=== PATIENT | female | born 1955 | race Caucasian/White ===

== ENCOUNTER → 2021-02-05 10:44 | Outpatient (BNVA) | payer MEDICARE, SELFPAY | PROVIDERS: PCP Pediatrics; Referring Provider Family Medicine; Visit Provider Internal Medicine Rheumatology | DX: R76.8 Other specified abnormal immunological findings in serum (principal); M19.90 Unspecified osteoarthritis, unspecified site; J44.9 Chronic obstructive pulmonary disease, unspecified; Z11.52 Encounter for screening for COVID-19; Z79.899 Other long term (current) drug therapy; G51.0 Bell's palsy; Z85.3 Personal history of malignant neoplasm of breast; Z90.11 Acquired absence of right breast and nipple; F17.200 Nicotine dependence, unspecified, uncomplicated | CPT/HCPCS: 36415; 73562; 80076; 81001; 82085; 82306; 82550; 82565; 82570; 84156; 85025; 86160; 86162; 86235; 86255; 86376; 99204 ==

== ENCOUNTER 2021-02-05 13:04 | Outpatient (CLI) | payer MEDICARE, SELFPAY ==
--- NOTE | 2021-02-05 13:16 | XR_ITS ---
WS: [id number] XR knee RT 3V* [id number] REASON FOR EXAM: Z79.899 - Other [employer] (current) drug therapy FINDINGS: The medial and lateral knee joint spaces are intact and relatively well-maintained. No osteophytic sp urring or subchondral bony abnormality identified. There is mild narrowing of the patellofemoral joint space with small marginal patellar osteophytes. XR/XR knee RT 3V* [id number] IMPRESSION: Mild changes of osteoarthritis in the patellofemoral joint.
[2021-02-05 14:06] LABS: Basophils # 0.1 10^3/uL (0.0-0.1); Basophils % 0.7 %; Eosinophils # 0.1 10^3/uL (0.0-0.8); Eosinophils % 0.7 %; Hematocrit 44.6 % (37.0-47.0); Hemoglobin 14.8 g/dL (11.5-15.3); Lymphocytes # 1.7 10^3/uL (0.8-4.8); Lymphocytes % 16.1 %; Mean Corpuscular HGB Conc 33.2 g/dL (30.0-36.0); Mean Corpuscular Hemoglobin 29.3 pg (28.0-34.0); Mean Corpuscular Volume 88.3 fL (81-99); Mean Platelet Volume 10.4 fL (7.4-10.4); Monocytes # 0.9 10^3/uL (0.2-0.9); Monocytes % 8.3 %; Neutrophils # 7.65 10^3/uL (1.8-7.7); Neutrophils % 73.1 %; Nucleated Red Blood Cells % 0 %; Platelet Count 267 10^3/cmm (130-400); Red Blood Count 5.05 10^6/uL (4.1-5.3); Red Cell Distribution Width 13.1 % (12.1-15.1); White Blood Count 10.5 10^3/uL (4.0-10.0)
[2021-02-05 14:27] LABS: Glucose Urine UA Norm (Normal); Ketones Urine 1+ (Negative); Protein Urine Neg (Negative); Urine Appearance Clear (CLEAR); Urine Color Yellow (Yellow); pH Urine 5 (5-7)
[2021-02-05 14:28] LABS: Bilirubin Urine 1+ (Negative); Blood Urine Neg (Negative); Nitrate Urine Negative (Negative); Urobilinogen Urine 4 mg/dL (Negative); WBC Urine 0-4 /hpf (0-5)
[2021-02-05 14:29] LABS: Add Urine Culture? No
[2021-02-05 14:44] LABS: Leukocyte Esterase Urine Trace (Negative)
[2021-02-05 14:46] LABS: Urine Creatinine 397 mg/dL (28-217); Urine Protein Random 35 mg/dL
[2021-02-05 15:04] LABS: 25 Hydroxy Vitamin D 12 ng/mL (30-100); Alanine Aminotransferase 21 U/L (0-33); Alkaline Phosphatase 146 IU/L (35-105); Aspartate Amino Transferase 20 U/L (0-32); Creatine Phosphokinase 54 U/L (26-192); Globulin 3.1 g/dL (1.3-4.6); Total Bilirubin 0.3 mg/dL (0.15-1.2); Total Protein 7.1 g/dL (6.6-8.7)
[2021-02-06 13:57] LABS: Cyclic Citrullinated Peptide <16 UNITS
[2021-02-07 10:27] LABS: COMPLEMENT COMPONENT C3C 129 mg/dL (83-193); COMPLEMENT COMPONENT C4C 17 mg/dL (15-57)
[2021-02-07 13:17] LABS: Aldolase 4.3 U/L (< OR = 8.1); COMPLEMENT, TOTAL (CH50) 58 U/mL (31-60)
[2021-02-10 12:36] LABS: CENTROMERE B ANTIBODY <1.0 NEG AI (<1.0 NEG); JO-1 ANTIBODY <1.0 NEG AI (<1.0 NEG); RNP ANTIBODY <1.0 NEG AI (<1.0 NEG); SCL-70 ANTIBODY <1.0 NEG AI (<1.0 NEG); SJOGREN'S ANTIBODY (SS-A) <1.0 NEG AI (<1.0 NEG); SM ANTIBODY <1.0 NEG AI (<1.0 NEG); SS-B <1.0 NEG AI (<1.0 NEG)
[2021-02-10 14:33] LABS: THYROID PEROXIDASE ANTIBODIES <1 IU/mL (<9)
[2021-02-10 14:58] LABS: ANA SCREEN, IFA NEGATIVE (NEGATIVE)
[2021-02-11 01:28] LABS: DNA AB (DS) CRITHIDIA,IFA NEGATIVE (NEGATIVE)
== END 2021-02-05 13:05 | disposition home or self-care (01) ==
LOC: RAD 13:15
PROVIDERS: PCP Pediatrics; Visit Provider Internal Medicine Rheumatology
DX: M19.90 Unspecified osteoarthritis, unspecified site (principal); R76.8 Other specified abnormal immunological findings in serum; Z79.899 Other long term (current) drug therapy
CPT/HCPCS: 36415; 73562; 80076; 81001; 82085; 82306; 82550; 82565; 82570; 84156; 85025; 86160; 86162; 86235; 86255; 86376